=== PATIENT | female | born 1935 | race Caucasian/White ===

== ENCOUNTER → 2016-12-23 | Outpatient (CLI) | payer MEDICARE, OTHER ==
--- NOTE | 2016-12-23 15:38 | RAD ---
Left wrist, 3 views, 12/23/2016: History: Wrist pain There is deformity of the distal radius due to an old healed fracture. No acute fracture or dislocation is identified. There is mild degenerative change at the radiocarpal articulation and at the first CMC joint. IMPRESSION: 1. Degenerative change. 2. Old healed distal radial fracture. 3. No acute bony abnormality is detected.
--- NOTE | 2016-12-23 15:39 | RAD ---
Indication pain in the knee. Difficulty walking. AP oblique and sunrise and lateral views of the right knee were obtained. There is mild medial and lateral joint space compartment narrowing. Bony mineralization appears normal. An acute finding is not seen. There is some mild patellofemoral narrowing. IMPRESSION: Moderate degenerative changes involving the knee
--- NOTE | 2016-12-23 15:41 | RAD ---
Lumbar spine, 3 views, 12/23/2016: History: Back pain The lumbar vertebral heights are well-maintained. There is moderate marginal spurring throughout the lumbar spine. There is moderate disc space narrowing at L5-S1. There are moderate degenerative changes involving the facet joints, particularly in the lower lumbar spine. No acute fracture or dislocation is identified. Aortic calcific plaquing is present. IMPRESSION: 1. Moderate multilevel degenerative change. 2. No acute bony abnormality is detected.
--- NOTE | 2016-12-23 15:41 | RAD ---
Right ankle, 3 views, 12/23/2016: History: Ankle pain No fracture or dislocation is identified. The ankle joint space is well-preserved. There is mild diffuse soft tissue swelling about the ankle. IMPRESSION: No acute bony abnormality is detected.
== END | disposition home or self-care (01) ==
LOC: DXRAD 14:12
PROVIDERS: ATTEND Orthopaedic Surgery
DX: M17.11 Unilateral primary osteoarthritis, right knee (principal); M19.031 Primary osteoarthritis, right wrist; M47.896 Other spondylosis, lumbar region; R26.2 Difficulty in walking, not elsewhere classified
CPT/HCPCS: 72100; 73110; 73564; 73610

== ENCOUNTER 2021-09-27 12:57 | Inpatient (IN) | payer MEDICARE, OTHER ==
[~2021-09-27] VITALS: Ht 152.4 cm; Wt 79.5 kg
[2021-09-27] MEDS ORDERED: ONDANSETRON PF 4 MG/2 ML VIAL. IVP ONE (13:15)
--- NOTE | 2021-09-27 13:45 | PHYS DOC ---
Past History Past Surgical History: Appendectomy, Hysterectomy, Knee Replacement General Adult EDM: Chief Complaint: MECHANICAL FALL HPI: HPI: Patient is a 86-year-old female brought in by EMS from home after a fall. Patient lost her footing and fell into a "wooden island" in her left lateral chest. Denies any loss of consciousness was able to ambulate after assistance with getting up. Has a history of hypertension and diabetes. Denies any blood thinner use. Denies any loss of consciousness Review of Systems: Review of Systems: All other systems within normal limits except for as noted in the HPI Current Medications: Current Meds: Current Medications Medications (Trade) Dose Ordered Sig/Josefina Start Time Stop Time Status Last Admin Dose Admin Fentanyl Citrate (Fentanyl 2ml Vial) 50 mcg 1X ONCE 09/27/21 13:15 09/27/21 13:16 UNV Ondansetron HCl (Zofran) 4 mg 1X ONCE 09/27/21 13:15 09/27/21 13:16 UNV Physical Exam: PE: Constitutional: Well developed, well nourished, no acute distress, non-toxic a ppearance. [] HENT: Normocephalic, atraumatic, bilateral external ears normal, nose normal. [] Eyes: PERRLA, conjunctiva normal, no discharge. [] Neck: No rigidity, supple, no stridor. No C-spine tenderness, no step-off or deformity [] Cardiovascular: Regular rate and rhythm, brisk cap refill [] Lungs & Thorax: Non labored symmetric respirations, no tachypnea or respiratory distress. Breath sounds equal. Severe left lateral rib pain [] Abdomen: Soft, nondistended, tender palpation, no tenderness of the hips. Skin: Warm, dry, no erythema, no rash. [] Back: Unremarkable Extremities: No deformities, range of motion grossly intact, no lower extremity edema [] Neurologic: Alert and oriented X 3, no focal deficits noted. [] Psychologic: Affect normal, judgement normal, mood normal. [] Current Patient Data: Vital Signs: Vital Signs Date Time Temp Pulse Resp B/P (MAP) Pulse Ox O2 Delivery O2 Flow Rate FiO2 09/27/21 13:05 71 18 158/75 (102) 100 Room Air EKG: EKG: Sinus rhythm, heart rate 68 bpm, left axis deviation, left anterior fascicular block Radiology/Procedures: Radiology/Procedures: [address] [address] IMAGING REPORT Signed PATIENT: CHANDRIKA GONZALEZ: [id number] : 1935 LOCATION: ER AGE: 86 SEX: F EXAM STATUS: REG ER ORD. PHYSICIAN: COREY DURAN MD REASON: fall PROCEDURE: CT HEAD AND CERVICAL SPINE WO STUDY: CT head and cervical spine without contrast INDICATION: Fall. COMPARISON: MRI of the cervical spine 01/04/2015 TECHNIQUE: Axial CT imaging through the head and cervical spine without the use of intravenous contrast. Sagittal and coronal reformats were obtained. One or more of the following individualized dose reduction techniques were utilized for this examination: 1. Automated exposure control 2. Adjustment of the mA and/or kV according to patient size 3. Use of iterative reconstruction technique. FINDINGS: CT head: No acute intracranial hemorrhage. Magana-white matter differentiation is maintained. No localized mass effect, midline shift or hydrocephalus. Not unexpected parenchymal volume loss. White matter findings most typical of chronic microvascular ischemic change. Some low-attenuation foci involving the deep magana nuclei typical installer helper infarcts which are age indeterminant but most likely chronic given the indication for imaging. Intracranial calcific atherosclerosis. No large scalp hematoma. Intact calvarium. CT cervical spine: No acute fracture or traumatic malalignment. Severe multifactorial degenerative changes of the cervical spine with central canal stenosis favored greatest at C5-C6 and at least moderate in severity. Multilevel osseous neural foraminal stenosis collectively more pronounced on the right such as at C3-C4 through C5- C6. Multifocal calcific atherosclerosis. Unremarkable thyroid. No paraspinous hematoma. No apical pneumothorax. Nonspecific heterogeneity of the upper lungs. IMPRESSION: CT head: 1. No acute intracranial abnormality by CT. 2. Chronic/senescent observations detailed above. CT cervical spine: 1. No acute fracture or traumatic malalignment noting osteopenia. 2. Severe multifactorial cervical/upper thoracic spondylosis with central canal stenosis favored greatest at C5-C6 and at least moderate in severity. Multilevel right more so than left osseous neural foraminal stenosis. Electronically signed by: MACHELLE BARBOSA MD (09/27/2021 3:27 PM) [facility] DICTATED AND SIGNED BY: MACHELLE BARBOSA MD DATE: 09/27/21 1521 CC: COREY DURAN MD; YASMIN DANGELO MD ~ [][address] [address] IMAGING REPORT Signed PATIENT: CHANDRIKA GONZALEZ LACCOUNT: [id number] : 1935 LOCATION: ER AGE: 86 SEX: F EXAM STATUS: REG ER ORD. PHYSICIAN: COREY DURAN MD REASON: fall PROCEDURE: CT HEAD AND CERVICAL SPINE WO STUDY: CT head and cervical spine without contrast INDICATION: Fall. COMPARISON: MRI of the cervical spine 01/04/2015 TECHNIQUE: Axial CT imaging through the head and cervical spine without the use of intravenous contrast. Sagittal and coronal reformats were obtained. One or more of the following individualized dose reduction techniques were utilized for this examination: 1. Automated exposure control 2. Adjustment of the mA and/or kV according to patient size 3. Use of iterative reconstruction technique. FINDINGS: CT head: No acute intracranial hemorrhage. Magana-white matter differentiation is maintained. No localized mass effect, midline shift or hydrocephalus. Not unexpected parenchymal volume loss. White matter findings most typical of chronic microvascular ischemic change. Some low-attenuation foci involving the deep magana nuclei typical installer helper infarcts which are age indeterminant but most likely chronic given the indication for imaging. Intracranial calcific atherosclerosis. No large scalp hematoma. Intact calvarium. CT cervical spine: No acute fracture or traumatic malalignment. Severe multifactorial degenerative changes of the cervical spine with central canal stenosis favored greatest at C5-C6 and at least moderate in severity. Multilevel osseous neural foraminal stenosis collectively more pronounced on the right such as at C3-C4 through C5- C6. Multifocal calcific atherosclerosis. Unremarkable thyroid. No paraspinous hematoma. No apical pneumothorax. Nonspecific heterogeneity of the upper lungs. IMPRESSION: CT head: 1. No acute intracranial abnormality by CT. 2. Chronic/senescent observations detailed above. CT cervical spine: 1. No acute fracture or traumatic malalignment noting osteopenia. 2. Severe multifactorial cervical/upper thoracic spondylosis with central canal stenosis favored greatest at C5-C6 and at least moderate in severity. Multilevel right more so than left osseous neural foraminal stenosis. Electronically signed by: MACHELLE BARBOSA MD (09/27/2021 3:27 PM) [facility] DICTATED AND SIGNED BY: MACHELLE BARBOSA MD DATE: 09/27/21 1521 CC: COREY DURAN MD; YASMIN DANGELO MD ~ Heart Score: C/O Chest Pain: N/A Risk Factors: Risk Factors: DM, Current or recent (<one month) smoker, HTN, HLP, family history of CAD, obesity. Risk Scores: Score 0 - 3: 2.5% MACE over next 6 weeks - Discharge Home Score 4 - 6: 20.3% MACE over next 6 weeks - Admit for Clinical Observation Score 7 - 10: 72.7% MACE over next 6 weeks - Early Invasive Strategies Course & Med Decision Making: Course & Med Decision Making Pertinent Labs and Imaging studies reviewed. (See chart for details) Consult placed to Dr. Mast for trauma admission, he thinks that the patient be fine staying at [facility] for seizures at home and contusion asleep in the f actors. Discussed with Dr. Olmedo who will accept patient for pulmonary toilet at [place] [] Dragon Disclaimer: Carrie Disclaimer: This electronic medical record was generated, in whole or in part, using a voice recognition dictation system. Departure Departure: Impression: Primary Impression: Fall Additional Impression: Closed traumatic nondisplaced fracture of multiple ribs of left side Disposition: ADMITTED INPATIENT Admitting Physician: Varun Olmedo Condition: GUARDED Referrals: YASMIN DANGELO MD (PCP) COREY DURAN MD Sep 27, 2021 13:45
[2021-09-27] MEDS ORDERED: ONDANSETRON PF 4 MG/2 ML VIAL. ONE (13:49)
[2021-09-27 14:02] LABS: BASO # 0.1 x10^3/uL (0.0-0.2); BASO % 1 % (0-3); EOS # 0.2 x10^3/uL (0.0-0.7); EOS % 2 % (0-3); HEMATOCRIT 44.3 % (36.0-47.0); LYMPH # 2.2 x10^3/uL (1.0-4.8); LYMPH % 24 % (24-48); MEAN CORPUSCULAR HEMOGLOBIN 32 pg (25-35); MEAN CORPUSCULAR HGB CONC 34 g/dL (31-37); MEAN CORPUSCULAR VOLUME 95 fL (79-100); MONO # 0.7 x10^3/uL (0.0-1.1); MONO % 7 % (0-9); NEUT # 6.1 x10^3uL (1.8-7.7); NEUT % 66 % (31-73); PLATELET COUNT 261 x10^3/uL (140-400); RED BLOOD COUNT 4.68 x10^6/uL (3.50-5.40); RED CELL DISTRIBUTION WIDTH 12.7 % (11.5-14.5); WHITE BLOOD COUNT 9.3 x10^3/uL (4.0-11.0)
[2021-09-27 14:10] LABS: CALCIUM 9.8 mg/dL (8.5-10.1); CREATININE 0.8 mg/dL (0.6-1.0); GFR 68.2
[2021-09-27 14:22] LABS: ALBUMIN 3.4 g/dL (3.4-5.0); TOTAL BILIRUBIN 1.3 mg/dL (0.2-1.0); TOTAL PROTEIN 6.7 g/dL (6.4-8.2)
[2021-09-27] MEDS ORDERED: IOHEXOL 300 MG/ML 75 ML VIAL. ONE (14:29)
--- NOTE | 2021-09-27 14:46 | RAD ---
EXAMINATION: XR CHEST 1V CLINICAL HISTORY: Left rib pain following fall. EXAM DATE/TIME: 09/27/2021 1:50 PM COMPARISON: None FINDINGS: Lines, Tubes, and Devices: None. Cardiomediastinal Silhouette: Normal heart size. Aortic atherosclerotic calcification. Lungs and Pleura: Mild bibasilar subsegmental atelectasis and/or scarring. No definite pleural effusi on. No pneumothorax. Bones and Soft Tissues: No evidence of acute left rib fracture. Remote healed left rib fracture defor mities. Partially visualized left clavicle plate and screw fixation hardware. Degenerative changes in the thoracic spine. IMPRESSION: No evidence of acute left rib fracture. Electronically signed by: Reji Cota DO (09/27/2021 2:44 PM) [id number]
--- NOTE | 2021-09-27 15:30 | RAD ---
STUDY: CT head and cervical spine without contrast INDICATION: Fall. COMPARISON: MRI of the cervical spine 01/04/2015 TECHNIQUE: Axial CT imaging through the head and cervical spine without the use of intravenous contra st. Sagittal and coronal reformats were obtained. One or more of the following individualized dose reduction techniques were utilized for this examinat ion: 1. Automated exposure control 2. Adjustment of the mA and/or kV according to patient size 3. Use of iterative reconstruction technique. FINDINGS: CT head: No acute intracranial hemorrhage. Magana-white matter differentiation is maintained. No localized mass effect, midline shift or hydrocephalus. Not unexpected parenchymal volume loss. White matter findings most typical of chronic microvascular i schemic change. Some low-attenuation foci involving the deep magana nuclei typical catalyst operator gasoline infarcts which are age indeterminant but most likely chronic given the indication for imaging. Intracranial ca lcific atherosclerosis. No large scalp hematoma. Intact calvarium. CT cervical spine: No acute fracture or traumatic malalignment. Severe multifactorial degenerative changes of the cervic al spine with central canal stenosis favored greatest at C5-C6 and at least moderate in severity. Mul tilevel osseous neural foraminal stenosis collectively more pronounced on the right such as at C3-C4 through C5-C6. Multifocal calcific atherosclerosis. Unremarkable thyroid. No paraspinous hematoma. No apical pneumot horax. Nonspecific heterogeneity of the upper lungs. IMPRESSION: CT head: 1. No acute intracranial abnormality by CT. 2. Chronic/senescent observations detailed above. CT cervical spine: 1. No acute fracture or traumatic malalignment noting osteopenia. 2. Severe multifactorial cervical/upper thoracic spondylosis with central canal stenosis favored gre atest at C5-C6 and at least moderate in severity. Multilevel right more so than left osseous neural f oraminal stenosis. Electronically signed by: MACHELLE BARBOSA MD (09/27/2021 3:27 PM) [facility]
--- NOTE | 2021-09-27 15:41 | RAD ---
Study: CT chest, abdomen and pelvis with contrast INDICATION: Fall. Left-sided chest pain. COMPARISON: None. TECHNIQUE: Helical CT imaging performed of the chest, abdomen and pelvis after the intravenous admini stration of 75 cc Omnipaque 300. Coronal and sagittal reformats were obtained. One or more of the following individualized dose reduction techniques were utilized for this examinat ion: 1. Automated exposure control 2. Adjustment of the mA and/or kV according to patient size 3. Use of iterative reconstruction technique. FINDINGS: CT Chest: No acute major vascular injury throughout the chest or lower neck. Multifocal calcified and noncalcif ied atheromatous plaque to include coronary artery involvement. No aortic aneurysm or dissection. Non dilated main pulmonary artery. No retrosternal hematoma, pneumomediastinum or pericardial effusion. Mediastinal and hilar lymph node s are within normal limits. No pneumothorax or pleural effusion. Mild bibasilar atelectasis. Favor nodular atelectasis at the med ial aspect of the left lower lobe on image 79 series 4. No suspicious solid pulmonary nodule. Patent central airways. Unremarkable thyroid and axillary lymph nodes. No large body wall hematoma. Acute fractures of the left third, fourth, fifth, sixth and seventh ribs anterolateral without signif icant displacement. Several chronic rib deformities on the left also noted. No displaced rib fracture seen on the right. Intact shoulder girdles. No acute fracture identified throughout the thoracic spi ne. Scattered degenerative changes and diffuse idiopathic skeletal hyperostosis. Intact sternum. CT Abdomen/Pelvis: No acute abnormality of the liver, spleen or kidneys. Hepatic steatosis. Layering gallstones without cholecystitis. Nondilated biliary tree. Unremarkable pancreas and adrenal glands. Numerous renal cyst ic foci the larger of which appear simple. Smaller low-attenuation foci are difficult to fully charac terize. Areas of renal cortical thinning on the left more so than right. Punctate nonobstructing intr arenal stone at the lower pole on the right. No hydronephrosis. Unremarkable bladder. Absent uterus. No adnexal mass. A few diverticuli without diverticulitis. Nonvisualized appendix. Within normal limits course and darline iber of the small bowel. Unremarkable stomach. Multifocal calcified and noncalcified atheromatous plaque. Particularly dense calcific plaque at the left renal artery origin. No acute major vascular abnormality. Adenopathy. No free fluid or pneumoper itoneum. No large body wall hematoma. Relatively symmetric muscular with scattered fatty infiltration. No acut e fracture of the lumbar spine. No acute fracture seen throughout the pelvis to include the hips. Mul tifactorial degenerative changes. Grade 1 anterolisthesis of L4 on L5. Central canal stenosis favored greatest at L3-L4 and L4-L5. Osseous neural foraminal stenosis greatest at L5-S1. IMPRESSION: CT Chest: 1. Acute left-sided rib fractures without significant displacement with involvement of at least the third through seventh ribs. No lung parenchymal contusion, pneumothorax or pleural effusion. 2. No additional sequela of acute trauma seen throughout the chest. Intact major vasculature. 3. Multifocal calcified and noncalcified atheromatous plaque with coronary artery involvement. CT Abdomen/Pelvis: 1. No sequela of acute trauma seen below the diaphragm. 2. Hepatic steatosis. 3. Multiple renal cysts the larger of which appear simple with the smaller foci incompletely charact erized. 4. Several additional chronic findings outlined in the body of the report. Electronically signed by: MACHELLE BARBOSA MD (09/27/2021 3:39 PM) [facility]
[2021-09-27] MEDS ORDERED: HYDROmorphone PF 1 MG/ML DISP.SYRIN IVP ONE (16:15)
[2021-09-27 16:32] LABS: BACTERIA,URINE MOD /HPF (0-FEW); CLARITY,URINE CLEAR; COLOR,URINE YELLOW; GLUCOSE,URINE NEG (NEG); NITRITE,URINE NEG (NEG); RBC,URINE OCC /HPF (0-2); SQUAMOUS EPITHELIAL CELL,UR MOD /LPF; UROBILINOGEN,URINE 0.2 mg/dL (0.2 mg/dL)
[2021-09-27] MEDS ORDERED: HYDROmorphone PF 1 MG/ML DISP.SYRIN IV PRN (16:45)
[2021-09-27] MEDS ORDERED: ONDANSETRON PF 4 MG/2 ML VIAL. IVP PRN (16:45)
[2021-09-27] MEDS ORDERED: POLYETHYLENE GLYCOL 3350 17 GM PACKET. PO PRN (17:15)
[2021-09-27] MEDS ORDERED: PANT40TA6 PO (18:03)
[2021-09-27] MEDS ORDERED: HYDR25TA10 PO (18:03)
[2021-09-27] MEDS ORDERED: INSU100I17 SQ (18:03)
[2021-09-27] MEDS ORDERED: TRAZ-120 PO (18:03)
[2021-09-27 18:11] VITALS: BP 156/88
[2021-09-27] MEDS ORDERED: DEXTROSE 50% 25 GM / 50ML DISP.SYRIN. IV PRN (18:15)
[2021-09-27] MEDS: oxyCODONE IR 5 MG TABLET PO PRN ×2 (19:19→23:20)
[2021-09-27 23:17] VITALS: BP 155/81
--- NOTE | 2021-09-28 00:37 | EKG ---
[address] [address] Test Date: 2021-09-27 Test Time: 13:30:16 Pat Name: CHANDRIKA GONZALEZ Department: Room: 105 A Gender: F Technical Trainer: RISHABH : 1935 Requested By: COREY DURAN Order Number: [id number] Reading MD: Sergio Castellanos Measurements Intervals North Rate: 68 P: 90 NM: 154 QRS: -64 QRSD: 136 T: -11 QT: 460 QTc: 495 Interpretive Statements SINUS RHYTHM ABNORMAL LEFT AXIS DEVIATION LEFT ANTERIOR FASCICULAR BLOCK RIGHT BUNDLE BRANCH BLOCK BIFASCICULAR BLOCK ABNORMAL ECG RI6.02 No previous ECG available for comparison Electronically Signed On 10-05-2021 14:21:23 CDT by Sergio Castellanos
[2021-09-28] MEDS: oxyCODONE IR 5 MG TABLET PO PRN ×2 (04:00→07:59)
[2021-09-28 05:56] VITALS: BP 160/83
[2021-09-28] MEDS: DOCUSATE SODIUM 100 MG CAPSULE PO SCH (07:58)
[2021-09-28] MEDS: PANTOPRAZOLE 40 MG TABLET. PO SCH (07:59)
[2021-09-28] MEDS: hydroCHLOROthiazide 25 MG TABLET. PO SCH (07:59)
[2021-09-28] MEDS: MORPHINE SULFATE 4 MG/ML DISP.SYRIN. IV PRN ×3 (08:53→17:49)
[2021-09-28 10:42] VITALS: BP 146/72
[2021-09-28] MEDS: INSULIN LISPRO 300 UNITS/3 ML VIAL. SQ SCH ×3 (10:53→17:40)
[2021-09-28 15:09] VITALS: BP 115/58
[2021-09-28] MEDS: LIDOCAINE (700MG/PATCH) PATCH. TD SCH (15:54)
--- NOTE | 2021-09-28 16:27 | HP ---
DATE OF SERVICE: 09/28/2021 ADMIT DATE: 09/27/2021 HISTORY OF PRESENT ILLNESS: The patient is an 86-year-old female patient who was brought to the Emergency Room by EMS from home after a fall. She apparently lost her footing and fell into a wooden island in her left lateral chest. Denied any loss of consciousness, was able to ambulate after assistance to get up. She is known to have hypertension and diabetes, but denied any blood thinners. Denied any loss of consciousness or hitting her head. She was extensively investigated in the Emergency Room, has had an EKG, imaging studies and lab work. Her EKG showed that she was in sinus rhythm with a heart rate of 68 beats per minute, left axis deviation, left anterior fascicular block. Her CT scan of the head and cervical spine were unremarkable with no acute intracranial abnormality by CT scan, chronic senescent changes. There is no acute fracture or traumatic malalignment noted, but noting osteopenia. She has severe multilevel cervical and upper thoracic spondylosis with central canal stenosis favored greatest at C5-C6 and at least moderate in severity, multilevel, right more than left osseous neural foraminal stenosis. She did have also a CT scan of the chest, abdomen and pelvis. The CT scan of the chest showed acute left sided rib fractures without significant displacement with involvement of at least 3rd through 7th ribs. No lung parenchymal contusion, pneumothorax, or pleural effusion. No additional sequelae of acute trauma seen throughout the chest, intact major vasculature. She has also multifocal calcified and noncalcified atheromatous plaques with the coronary artery involvement. CT scan of the abdomen and pelvis showed no sequelae of acute trauma seen below the diaphragm. She has hepatic steatosis, multiple renal cysts, the larger of which appears simple with the smallest foci incompletely characterized several additional chronic findings. The patient was admitted for pain management, DVT prophylaxis and to start the process of physical and occupational therapy. PAST MEDICAL HISTORY: Significant for hypertension, hyperlipidemia. PAST SURGICAL HISTORY: Significant for bilateral cataract extraction, appendectomy, hysterectomy, bilateral total knee arthroplasty. ALLERGIES: SHE IS ALLERGIC TO SULFA DRUGS. MEDICATIONS: She is currently on the following medications: She is on hydrochlorothiazide 25 mg once a day, Protonix 40 mg once a day. She is also on NovoLog 10 units before meals. FAMILY HISTORY: Noncontributory. SOCIAL HISTORY: She is . Her son lives with her. Children are grown up. She does not smoke, drink alcohol or recreational drugs. She does not use any assistive devices at home, but she uses a cane when she moves outside. She denied any dizziness, lightheadedness. Denied any palpitation. Denied any tripping or slipping. PHYSICAL EXAMINATION: GENERAL: On arrival to the Emergency Room, she looked well and was clearly in no apparent respiratory distress. No pallor, jaundice, cyanosis. No lymphadenopathy, no thyromegaly, no jugular venous distention. No limb edema. VITAL SIGNS: Her heart rate on arrival was 71, blood pressure is 158/75, temperature was 97.8, respiratory rate was 18 and oxygen saturation was 100%. HEAD, EYES, EARS, NOSE, AND THROAT: Normocephalic, atraumatic. NECK: Supple. HEART: Showed normal first and second heart sounds. No gallop, rub or murmur. CHEST: Clear to auscultation, no crepitation or rhonchi. ABDOMEN: Distended, soft, nontender. NEUROLOGIC: She was awake, alert, responding appropriately. Cranial nerves intact. She moves extremities without difficulty. LABORATORY WORK: Showed a white cell count 9300, hemoglobin 15, hematocrit 44, MCV 95 and platelet count 261,000. Her chemistry showed a serum sodium 138, potassium 4, chloride 100, bicarbonate 29, anion gap of 9, BUN 17, creatinine 0.8. Estimated GFR was 68 mL per minute. Her glucose was 139, calcium was 9.8. Total bilirubin 1.3. AST, ALT, alkaline phosphatase were normal. Her troponin I high sensitivity was 17. Beta natriuretic peptide was 429. Total protein 6.7, albumin 3.4, serum lipase was 102. Her urinalysis was essentially unremarkable and her coronavirus by rapid antigen testing was negative. A CT scan of the head and cervical spine showed the patient has no intracranial hemorrhage. The kulkarni-white matter differentiation is maintained. No localized mass effect, midline shift or hydrocephalus. Parenchymal volume loss with white matter finding, most typical of chronic microvascular ischemic changes, some low attenuation foci involving the deep kulkarni nuclei, typical house calls nurse infarct, which are age indeterminate, but most likely chronic given the indication for imaging intracranial calcific atherosclerosis. No large scalp hematoma and intact calvarium and there is no acute fracture or traumatic malalignment of the cervical spine, several multifactorial degenerative changes of the cervical spine with central canal stenosis favored greatest at C5-C6 and at least moderate in severity. She has multilevel osseous neural foraminal stenosis collectively more pronounced on the right, such as at C3-C4 through C5-C6. She has multifocal calcific atherosclerosis. Unremarkable thyroid no paraspinous hematoma. No apical pneumothorax. No specific ____ the upper lung. The CT scan of the chest, abdomen and pelvis showed no acute major vascular injury throughout the chest and lower neck. Multifocal calcified and noncalcified atheromatous plaque to include coronary artery involvement. No aortic aneurysm or dissection. Nondilated main pulmonary artery. No retrosternal hematoma, pneumomediastinum or pericardial effusion. Mediastinal and hilar lymph nodes are within normal limits. No pneumothorax or pleural effusion. Mild bibasilar atelectasis, , unremarkable thyroid and axillary lymph nodes, no large body wall hematoma. The patient has acute fracture of the left third, fourth, fifth, sixth and seventh rib anterolaterally without significant displacement. The patient has several chronic rib deformities on the left also noted. No displaced fracture seen on the right, intact shoulder girdle, no acute fracture identified throughout the thoracic spine. CT scan of the abdomen and pelvis showed no sequelae of acute trauma seen below the diaphragm, she has hepatic steatosis. ASSESSMENT AND PLAN: The patient was admitted basically for pain control, DVT prophylaxis and start the process of physical and occupational therapy. APOORVA/SREE/PURA DR: Ricarda TID: [id number]
[2021-09-28 19:48] VITALS: BP 107/68
[2021-09-28] MEDS ORDERED: INSULIN GLARGINE SYRINGE. SQ SCH (21:00)
[2021-09-28] MEDS: oxyCODONE ER 10 MG TAB.ER.12H PO SCH (22:15)
[2021-09-28 23:04] VITALS: BP 152/70
[2021-09-29] MEDS: HYDROmorphone PF 1 MG/ML DISP.SYRIN IVP PRN ×2 (03:42→16:19)
[2021-09-29 06:02] VITALS: BP 136/78
[2021-09-29] MEDS: PANTOPRAZOLE 40 MG TABLET. PO SCH (08:45)
[2021-09-29] MEDS: DOCUSATE SODIUM 100 MG CAPSULE PO SCH (08:46)
[2021-09-29] MEDS: oxyCODONE ER 10 MG TAB.ER.12H PO SCH ×2 (08:46→20:22)
[2021-09-29] MEDS: hydroCHLOROthiazide 25 MG TABLET. PO SCH (08:46)
[2021-09-29] MEDS: IV NORMAL SALINE 1,000ML 1,000 ML IV SCH ×2 (08:47→18:44)
[2021-09-29] MEDS: INSULIN LISPRO 300 UNITS/3 ML VIAL. SQ SCH ×3 (08:50→17:26)
[2021-09-29] MEDS: LIDOCAINE (700MG/PATCH) PATCH. TD SCH (08:51)
[2021-09-29 10:51] VITALS: BP 133/76
[2021-09-29] MEDS ORDERED: INSULIN GLARGINE SYRINGE. SQ SCH (11:15)
[2021-09-29 12:26] LABS: HEMATOCRIT 41.8 % (36.0-47.0); HEMOGLOBIN 14.2 g/dL (12.0-15.5); RED BLOOD COUNT 4.41 x10^6/uL (3.50-5.40); RED CELL DISTRIBUTION WIDTH 12.8 % (11.5-14.5); WHITE BLOOD COUNT 11.2 x10^3/uL (4.0-11.0)
[2021-09-29 12:40] LABS: ALBUMIN/GLOBULIN RATIO 0.8 (1.0-1.7); CALCIUM 8.9 mg/dL (8.5-10.1); CREATININE 0.9 mg/dL (0.6-1.0); GFR 59.5; TOTAL BILIRUBIN 1.6 mg/dL (0.2-1.0); TOTAL PROTEIN 6.6 g/dL (6.4-8.2)
[2021-09-29] MEDS ORDERED: POTASSIUM CHLORIDE 20 MEQ TABLET.ER. PO ONE (13:00)
[2021-09-29] MEDS: IBUPROFEN 600 MG TABLET. PO PRN (13:55)
[2021-09-29 15:02] VITALS: BP 132/66
[2021-09-29] MEDS: POTASSIUM CHLORIDE 20 MEQ TABLET.ER. PO SCH ×2 (15:19→20:22)
--- NOTE | 2021-09-29 16:12 | RAD ---
AP chest. HISTORY: Multiple rib fractures, short of breath AP view of the chest was compared with a recent study. There are multiple rib fractures. Patient's ta saji a poor inspiration. There is mild increased hazy atelectasis or infiltrate or edema in the lung b ases. There is no pneumothorax. IMPRESSION: 1. Poor inspiration. 2. Increased basilar atelectasis or infiltrates or edema. Electronically signed by: Obi Alonso MD (09/29/2021 4:10 PM) [id number]
[2021-09-29 19:00] VITALS: BP 122/71
[2021-09-29] MEDS: INSULIN GLARGINE SYRINGE. SQ SCH (20:24)
[2021-09-29 23:00] VITALS: BP 145/73
--- NOTE | 2021-09-30 00:23 | PN ---
DATE: 09/29/2021 SUBJECTIVE: The patient is resting, slightly propped up in bed, clearly in severe pain with every movement. She did work with physical therapy and sat in the chair for a while. PHYSICAL EXAMINATION: GENERAL: When I examined her, she looked well and was clearly in no apparent respiratory distress. No pallor, jaundice, cyanosis or thyromegaly. No jugular venous distention. No lower limb edema. VITAL SIGNS: Her heart rate was 89, blood pressure was 133/76, temperature was 98.2, respiratory rate was 18 and oxygen saturation was 92%. In fact, she is 96% on room air. HEAD, EYES, EARS, NOSE, AND THROAT: Normocephalic, atraumatic. NECK: Supple. HEART: Normal first and second heart sounds. No gallop, rub or murmur. CHEST: Showed central trachea, equal bilateral chest expansion, air entry, vesicular breath sounds. No crepitation or rhonchi. ABDOMEN: Distended, soft, nontender. NEUROLOGIC: She is grossly intact. Her intake and output are incompletely recorded. LABORATORY DATA: Her lab work this morning still pending at the time of this dictation. Her blood sugar is suboptimally controlled. Her coronavirus by PCR was not detectable. ASSESSMENT: 1. Fall with multiple left-sided rib fractures. 2. Hypertension. 3. Hyperlipidemia. PLAN: My plan is to continue with pain management in the form of Lidoderm patches, OxyContin as well as hydromorphone. I will increase her Lantus to 20 units at bedtime. Continue obviously with Colace and MiraLax to prevent opioid-induced constipation. KARLA DR: Ricarda TID: [id number]
[2021-09-30] MEDS: IV NORMAL SALINE 1,000ML 1,000 ML IV SCH ×2 (04:30→14:28)
[2021-09-30 05:00] VITALS: BP 159/81
[2021-09-30 07:41] LABS: BASO # 0.1 x10^3/uL (0.0-0.2); BASO % 1 % (0-3); EOS # 0.4 x10^3/uL (0.0-0.7); EOS % 5 % (0-3); HEMATOCRIT 40.9 % (36.0-47.0); LYMPH # 2.4 x10^3/uL (1.0-4.8); LYMPH % 29 % (24-48); MEAN CORPUSCULAR HEMOGLOBIN 33 pg (25-35); MEAN CORPUSCULAR HGB CONC 34 g/dL (31-37); MEAN CORPUSCULAR VOLUME 96 fL (79-100); MONO # 0.7 x10^3/uL (0.0-1.1); MONO % 9 % (0-9); NEUT # 4.7 x10^3uL (1.8-7.7); NEUT % 57 % (31-73); PLATELET COUNT 207 x10^3/uL (140-400); RED BLOOD COUNT 4.28 x10^6/uL (3.50-5.40); RED CELL DISTRIBUTION WIDTH 13.2 % (11.5-14.5); WHITE BLOOD COUNT 8.2 x10^3/uL (4.0-11.0)
[2021-09-30 08:01] LABS: ALBUMIN 2.6 g/dL (3.4-5.0); ALBUMIN/GLOBULIN RATIO 0.8 (1.0-1.7); CALCIUM 8.4 mg/dL (8.5-10.1); CREATININE 0.8 mg/dL (0.6-1.0); GFR 68.2; TOTAL BILIRUBIN 1.5 mg/dL (0.2-1.0)
[2021-09-30] MEDS: hydroCHLOROthiazide 25 MG TABLET. PO SCH (08:16)
[2021-09-30] MEDS: POTASSIUM CHLORIDE 20 MEQ TABLET.ER. PO SCH ×3 (08:16→21:05)
[2021-09-30] MEDS: IBUPROFEN 600 MG TABLET. PO PRN ×2 (08:17→23:08)
[2021-09-30] MEDS: PANTOPRAZOLE 40 MG TABLET. PO SCH (08:17)
[2021-09-30] MEDS: oxyCODONE ER 10 MG TAB.ER.12H PO SCH ×2 (08:17→21:06)
[2021-09-30] MEDS: DOCUSATE SODIUM 100 MG CAPSULE PO SCH (08:17)
[2021-09-30] MEDS: INSULIN LISPRO 300 UNITS/3 ML VIAL. SQ SCH ×3 (08:18→17:57)
[2021-09-30] MEDS: LIDOCAINE (700MG/PATCH) PATCH. TD SCH (09:00)
[2021-09-30 11:08] VITALS: BP 137/63
[2021-09-30] MEDS: POLYETHYLENE GLYCOL 3350 17 GM PACKET. PO SCH (11:28)
[2021-09-30 15:00] VITALS: BP 123/72
[2021-09-30 19:30] VITALS: BP 130/59
[2021-09-30] MEDS: INSULIN GLARGINE SYRINGE. SQ SCH (21:12)
--- NOTE | 2021-09-30 22:22 | PN ---
DATE: 09/30/2021 SUBJECTIVE: The patient continued to be resting, slightly propped up in bed, complaining of severe left sided chest pain; however, she denied any cough or shortness of breath. She is already on oxycodone. She is also on hydromorphone as well as Lidoderm patches and ibuprofen. PHYSICAL EXAMINATION: GENERAL: When I examined her, she looked well and was clearly in no apparent respiratory distress. No pallor, jaundice, cyanosis or thyromegaly. No jugular venous distention. No lower limb edema. VITAL SIGNS: His heart rate was 80, blood pressure is 159/81, temperature was 98.4, respiratory rate was 16 and oxygen saturation was 96% on room air. HEAD, EYES, EARS, NOSE, AND THROAT: Normocephalic, atraumatic. NECK: Supple. HEART: Showed normal first and second heart sounds. No gallop, rub or murmur. CHEST: Shows central trachea, equal bilateral expansion, air entry, vesicular breath sounds with bilateral basal crepitation posteriorly. I could not appreciate any rhonchi. ABDOMEN: Distended, soft, nontender. NEUROLOGIC: She was grossly intact. Her intake and output were incompletely recorded. LABORATORY DATA: As of this morning, her white cell count was 8.2, hemoglobin 14, hematocrit 41, MCV 96 and platelet count of 207,000 with normal manual differential. Her chemistry showed her serum sodium is up to 141, potassium 4, chloride 107, bicarbonate 26, anion gap of 8, BUN 12, creatinine 0.8. Estimated GFR was 68 mL per minute. Her glucose was 205, calcium was 8.4. Total bilirubin 1.5. AST, ALT, alkaline phosphatase were normal. Total protein 6, albumin 2.6. ASSESSMENT: 1. Fall with multiple left sided rib fracture. The patient continues to complain of pain despite being on oxycodone, hydromorphone, ibuprofen and Lidoderm patches. The patient was encouraged to use the incentive spirometry, encouraged to get out of the bed and to move around to avoid atelectasis and infection. 3. Hypertension. 4. Hyperlipidemia. 5. Deep venous thrombosis prophylaxis. She is on SCDs. 6. Hypokalemia, resolved. Her potassium is up to 4 today. PLAN: To continue with pain management. Continue with incentive spirometry. Continue with physical and occupational therapy. She will probably need to be discharged tomorrow or Friday to [facility] for pain management and physical therapy. MACIEL DR: Ricarda TID: [id number]
[2021-10-01] MEDS: IV NORMAL SALINE 1,000ML 1,000 ML IV SCH (02:19)
[2021-10-01] MEDS: HYDROmorphone PF 1 MG/ML DISP.SYRIN IVP PRN (05:46)
[2021-10-01 07:26] VITALS: BP 135/76
[2021-10-01] MEDS: IBUPROFEN 600 MG TABLET. PO PRN (08:18)
[2021-10-01] MEDS: POLYETHYLENE GLYCOL 3350 17 GM PACKET. PO SCH (08:19)
[2021-10-01] MEDS: POTASSIUM CHLORIDE 20 MEQ TABLET.ER. PO SCH ×3 (08:19→21:09)
[2021-10-01] MEDS: hydroCHLOROthiazide 25 MG TABLET. PO SCH (08:19)
[2021-10-01] MEDS: DOCUSATE SODIUM 100 MG CAPSULE PO SCH (08:19)
[2021-10-01] MEDS: oxyCODONE ER 10 MG TAB.ER.12H PO SCH ×2 (08:19→21:09)
[2021-10-01] MEDS: LIDOCAINE (700MG/PATCH) PATCH. TD SCH (08:20)
[2021-10-01] MEDS: PANTOPRAZOLE 40 MG TABLET. PO SCH (08:20)
[2021-10-01] MEDS: INSULIN LISPRO 300 UNITS/3 ML VIAL. SQ SCH ×3 (08:21→17:00)
[2021-10-01 10:08] LABS: BACTERIA,URINE 0 /HPF (0-FEW); CLARITY,URINE CLEAR; COLOR,URINE YELLOW; GLUCOSE,URINE NEG (NEG); NITRITE,URINE NEG (NEG); SQUAMOUS EPITHELIAL CELL,UR MANY /LPF; UROBILINOGEN,URINE 0.2 mg/dL (0.2 mg/dL)
[2021-10-01] MEDS ORDERED: ASPIRIN ENTERIC COATED 81 MG TABLET.DR. PO ONE (10:45)
[2021-10-01] MEDS ORDERED: METOPROLOL TART IMMED RELEASE 25 MG TABLET. PO ONE (10:45)
[2021-10-01 10:47] VITALS: BP 124/74
[2021-10-01] MEDS: oxyCODONE IR 5 MG TABLET PO PRN (14:39)
[2021-10-01 14:40] VITALS: BP 113/74
--- NOTE | 2021-10-01 15:26 | PDOC2 ---
CONSULT DOS: DATE: 10/01/21 TIME: 15:26 Reason for Consult: Cardiac arrhythmia Referring Physician: Dr. Olmedo Source: Chart review Problem List Problems Medical Problems: (1) Closed traumatic nondisplaced fracture of multiple ribs of left side Status: Acute (2) Fall Status: Acute History of Present Illness 86 y/p female presented after she had a mechanical fall resulting in rib fract ures. Tele showed few brief episodes of arrhythmia possibly AT/SVT with aberrancy prompting cardiology consultation. She complained of pain at rib fracture site but denied any orthopnea/PND, palpitations or syncope Past Medical History HTN HLP Past Surgical History Significant for bilateral cataract extraction, appendectomy, hysterectomy, bilateral total knee arthroplasty. Social History She is . Her son lives with her. Children are grown up. She does not smoke, drink alcohol or recreational drugs. She does not use any assistive devices at home, but she uses a cane when she moves outside. She denied any dizziness, lightheadedness. Denied any palpitation. Denied any tripping or slipping. Current Medications Current Medications Ondansetron HCl (Zofran) 4 mg 1X ONCE IVP Last administered on 09/27/21at 13:51; Start 09/27/21 at 13:15; Stop 09/27/21 at 13:49; Status DC Fentanyl Citrate (Fentanyl 2ml Vial) 50 mcg 1X ONCE IVP Last administered on 09/27/21at 13:52; Start 09/27/21 at 13:15; Stop 09/27/21 at 17:24; Status DC Ondansetron HCl (Zofran) 4 mg STK-MED ONCE .ROUTE ; Start 09/27/21 at 13:49; Stop 09/27/21 at 13:50; Status DC Fentanyl Citrate (Fentanyl 2ml Vial) 100 mcg STK-MED ONCE .ROUTE ; Start 09/27/21 at 13:50; Stop 09/27/21 at 13:50; Status DC Iohexol (Omnipaque 300 Mg/ml) 75 ml STK-MED ONCE .ROUTE ; Start 09/27/21 at 14:29; Stop 09/27/21 at 14:29; Status DC Hydromorphone HCl (Dilaudid) 1 mg 1X ONCE IVP Last administered on 09/27/21at 16:14; Start 09/27/21 at 16:15; Stop 09/27/21 at 16:16; Status DC Ondansetron HCl (Zofran) 4 mg PRN Q4HRS PRN IVP NAUSEA/VOMITING; Start 09/27/21 at 16:45; Stop 09/28/21 at 16:44; Status DC Hydromorphone HCl (Dilaudid) 0.5 mg PRN Q2HR PRN IV PAIN; Start 09/27/21 at 16:45; Stop 09/27/21 at 17:24; Status DC Oxycodone HCl (Roxicodone) 5 mg PRN Q4HRS PRN PO PAIN Last administered on 09/28/21at 07:59; Start 09/27/21 at 17:15; Stop 09/28/21 at 15:10; Status DC Polyethylene Glycol (miraLAX) 17 gm PRN DAILY PRN PO CONSTIPATION; Start 09/27/21 at 17:15; Stop 09/30/21 at 10:01; Status DC Docusate Sodium (Colace) 100 mg DAILY PO Last administered on 10/01/21 08:19; Start 09/28/21 at 09:00 Insulin Human Lispro (HumaLOG) 0-9 UNITS TIDWMEALS SQ Last administered on 10/01/21at 12:04; Start 09/28/21 at 08:00 Dextrose (Dextrose 50%-Water Syringe) 12.5 gm PRN Q15MIN PRN IV SEE COMMENTS; Start 09/27/21 at 18:15 Hydrochlorothiazide (Hydrodiuril) 25 mg DAILY PO Last administered on 10/01/21at 08:19; Start 09/28/21 at 09:00 Pantoprazole Sodium (Protonix) 40 mg DAILY PO Last administered on 10/01/21 08:20; Start 09/28/21 at 09:00 Morphine Sulfate (Morphine 4mg Syringe) 4 mg PRN Q4HRS PRN IV PAIN Last administered on 09/28/21at 17:49; Start 09/28/21 at 08:45; Stop 09/28/21 at 18:50; Status DC Lidocaine (Lidoderm) 2 patch DAILY TD Last administered on 10/01/21at 08:20; Start 09/28/21 at 15:00 Insulin Glargine (Lantus Syringe) 10 unit QHS SQ Last administered on 09/28/21at 22:14; Start 09/28/21 at 21:00; Stop 09/29/21 at 11:14; Status DC Oxycodone HCl (OxyCONTIN) 10 mg Q12HR PO Last administered on 10/01/21at 08:19; Start 09/28/21 at 21:00 Hydromorphone HCl (Dilaudid) 1 mg PRN Q3HRS PRN IVP PAIN Last administered on 10/01/21at 05:46; Start 09/28/21 at 18:45 Sodium Chloride 1,000 ml @ 100 mls/hr Q10H IV Last administered on 10/01/21at 02:19; Start 09/29/21 at 08:00; Stop 10/01/21 at 10:40; Status DC Insulin Glargine (Lantus Syringe) 20 unit QHS SQ ; Start 09/29/21 at 11:15; Stop 09/29/21 at 11:21; Status DC Insulin Glargine (Lantus Syringe) 20 unit QHS SQ Last administered on 09/30/21at 21:12; Start 09/29/21 at 21:00 Potassium Chloride (Klor-Con) 40 meq 1X ONCE PO Last administered on 09/29/21at 13:55; Start 09/29/21 at 13:00; Stop 09/29/21 at 13:01; Status DC Potassium Chloride (Klor-Con) 20 meq TID PO Last administered on 10/01/21at 13:42; Start 09/29/21 at 14:00 Ibuprofen (Motrin) 600 mg PRN Q6HRS PRN PO PAIN/INFLAMMATION Last administered on 10/01/21at 08:18; Start 09/29/21 at 13:00 Polyethylene Glycol (miraLAX) 17 gm DAILY PO Last administered on 10/01/21at 08:19; Start 09/30/21 at 10:00 Metoprolol Tartrate (Lopressor) 25 mg BID PO ; Start 10/01/21 at 21:00 Metoprolol Tartrate (Lopressor) 25 mg 1X ONCE PO Last administered on 10/01/21at 12:05; Start 10/01/21 at 10:45; Stop 10/01/21 at 10:46; Status DC Aspirin (Aspirin Enteric Coated) 81 mg DAILYWBKFT PO ; Start 10/02/21 at 08:00 Aspirin (Aspirin Enteric Coated) 81 mg 1X ONCE PO Last administered on 10/01/21at 12:04; Start 10/01/21 at 10:45; Stop 10/01/21 at 10:47; Status DC Oxycodone HCl (Roxicodone) 5 mg PRN Q4HRS PRN PO PAIN Last administered on 10/01/21at 14:39; Start 10/01/21 at 13:45 Active Scripts Active Reported Novolog Flexpen (Insulin Aspart) 100 Unit/1 Ml Insuln.pen 10 Units SQ TID MDD 30 Pantoprazole Sodium 40 Mg Tablet.dr 1 Tab PO DAILY Hydrochlorothiazide 25 Mg Tablet 1 Tab PO DAILY Allergies: Coded Allergies: sulfamethoxazole (Verified Allergy, Mild, 09/27/21) trimethoprim (Verified Allergy, Mild, 09/27/21) Review of System 14 point of systems is negative other than for symptoms mentioned in HPI General: Alert, No acute distress HEENT: Atraumatic Lungs: Clear to auscultation Heart: Regular rate Abdomen: Soft Extremities: No edema Psych/Mental Status: Mood NL VITALS Vital Signs Date Time Temp Pulse Resp B/P (MAP) Pulse Ox O2 Delivery O2 Flow Rate FiO2 10/01/21 15:09 16 96 Room Air 10/01/21 14:40 97.1 70 113/74 (87) Labs Laboratory Tests Test 09/29/21 20:11 09/30/21 06:40 09/30/21 07:40 09/30/21 11:45 Glucose (Fingerstick) 172 mg/dL (70-99) 206 mg/dL (70-99) 261 mg/dL (70-99) White Blood Count 8.2 x10^3/uL (4.0-11.0) Red Blood Count 4.28 x10^6/uL (3.50-5.40) Hemoglobin 14.0 g/dL (12.0-15.5) Hematocrit 40.9 % (36.0-47.0) Mean Corpuscular Volume 96 fL (79-100) Mean Corpuscular Hemoglobin 33 pg (25-35) Mean Corpuscular Hemoglobin Concent 34 g/dL (31-37) Red Cell Distribution Width 13.2 % (11.5-14.5) Platelet Count 207 x10^3/uL (140-400) Neutrophils (%) (Auto) 57 % (31-73) Lymphocytes (%) (Auto) 29 % (24-48) Monocytes (%) (Auto) 9 % (0-9) Eosinophils (%) (Auto) 5 % (0-3) Basophils (%) (Auto) 1 % (0-3) Neutrophils # (Auto) 4.7 x10^3uL (1.8-7.7) Lymphocytes # (Auto) 2.4 x10^3/uL (1.0-4.8) Monocytes # (Auto) 0.7 x10^3/uL (0.0-1.1) Eosinophils # (Auto) 0.4 x10^3/uL (0.0-0.7) Basophils # (Auto) 0.1 x10^3/uL (0.0-0.2) Sodium Level 141 mmol/L (136-145) Potassium Level 4.0 mmol/L (3.5-5.1) Chloride Level 107 mmol/L (98-107) Carbon Dioxide Level 26 mmol/L (21-32) Anion Gap 8 (6-14) Blood Urea Nitrogen 12 mg/dL (7-20) Creatinine 0.8 mg/dL (0.6-1.0) Estimated GFR (Cockcroft-Gault) 68.2 BUN/Creatinine Ratio 15 (6-20) Glucose Level 205 mg/dL (70-99) Calcium Level 8.4 mg/dL (8.5-10.1) Magnesium Level 1.9 mg/dL (1.8-2.4) Total Bilirubin 1.5 mg/dL (0.2-1.0) Aspartate Amino Transf (AST/SGOT) 23 U/L (15-37) Alanine Aminotransferase (ALT/SGPT) 15 U/L (14-59) Alkaline Phosphatase 51 U/L (46-116) Total Protein 6.0 g/dL (6.4-8.2) Albumin 2.6 g/dL (3.4-5.0) Albumin/Globulin Ratio 0.8 (1.0-1.7) Thyroid Stimulating Hormone (TSH) 3.119 uIU/mL (0.358-3.740) Test 09/30/21 16:46 09/30/21 20:31 10/01/21 07:26 10/01/21 09:00 Glucose (Fingerstick) 225 mg/dL (70-99) 250 mg/dL (70-99) 164 mg/dL (70-99) Urine Collection Type Unknown Urine Color Yellow Urine Clarity Clear Urine pH 5.5 Urine Specific [place] 1.020 Urine Protein Neg (NEG-TRACE) Urine Glucose (UA) Neg mg/dL (NEG) Urine Ketones (Stick) Neg mg/dL (NEG) Urine Blood Neg (NEG) Urine Nitrite Neg (NEG) Urine Bilirubin Neg (NEG) Urine Urobilinogen Dipstick 0.2 mg/dL (0.2 mg/dL) Urine Leukocyte Esterase Trace (NEG) Urine RBC 1-2 /HPF (0-2) Urine WBC 5-10 /HPF (0-4) Urine Squamous Epithelial Cells Many /LPF Urine Bacteria 0 /HPF (0-FEW) Test 10/01/21 11:36 Glucose (Fingerstick) 177 mg/dL (70-99) Assessment/Plan 1. Traumatic fall; no precipitating dizziness or LOC 2. Arrhythmia; tele noted with burst of probable atrial tach with aberrant conduction. No clear VT/VF noted. TSH WNL. Start beta blockers. Check 2D echo to assess LV function and rule out structural abnormalities. Plan event monitor as outpatient 3. Hypertension; controlled 4. Hyperlipidemia: statins 5. Diabetes, II: treat per IM Thank you for your consultation DEMARIO MAJOR MD Oct 01, 2021 15:26
[2021-10-01 19:38] VITALS: BP 118/73
[2021-10-01] MEDS: METOPROLOL TART IMMED RELEASE 25 MG TABLET. PO SCH (21:09)
[2021-10-01] MEDS: INSULIN GLARGINE SYRINGE. SQ SCH (21:22)
[2021-10-01 23:00] VITALS: BP 137/71
--- NOTE | 2021-10-02 02:58 | PN ---
DATE: 10/01/2021 SUBJECTIVE: The patient is sitting in the chair, participating with physical and occupational therapy. While walking to the gym, she went into an episode of ventricular tachycardia that lasted for probably at least 3-4 seconds. She had another episode yesterday, it was shorter and I did actually check her electrolytes and her potassium and magnesium are well within normal range. I did speak with Jesika, the nurse practitioner of the Cardiology team and the plan was to start her on metoprolol 25 mg twice a day as well as a baby aspirin and arrangement will be made for her to have an echocardiogram and an event monitor before she could be discharged to [facility]. When I saw her today, she looked well and was clearly in no apparent respiratory distress. She continued to complain of severe pain, but denied any shortness of breath, orthopnea, or paroxysmal nocturnal dyspnea. PHYSICAL EXAMINATION: GENERAL: When I examined her, she looked well and was clearly in no apparent respiratory distress. No pallor, jaundice, cyanosis or thyromegaly. No jugular venous distention. No limb edema. VITAL SIGNS: Her heart rate was 81, blood pressure was 135/76, temperature was 96.6, respiratory rate was 15 and oxygen saturation was 96% on room air. HEAD, EYES, EARS, NOSE, AND THROAT: Normocephalic, atraumatic. NECK: Supple. HEART: Showed normal first and second heart sounds. No gallop, rub or murmur. CHEST: Clear to auscultation, no crepitation or rhonchi. ABDOMEN: Distended, soft, nontender. NEUROLOGIC: She was awake, alert, responding appropriately. Cranial nerves intact. She moves extremities without difficulty. She ambulates with a walker. Her intake was 3100, output was 1150. LABORATORY DATA: As of yesterday, her white cell count was 8.2, hemoglobin 14, hematocrit 41, MCV 96 and platelet count 207,000. Her blood sugar seems to be reasonably controlled. Her chemistry as of yesterday showed a serum sodium 141, potassium 4, chloride 107, bicarbonate 26, anion gap of 8, BUN 12, creatinine 0.8. Estimated GFR was 68 mL per minute. Her glucose was 205, calcium was 8.4. Her serum magnesium was 1.9. Total bilirubin, AST, ALT, alkaline phosphatase were normal. Total protein 5, albumin 2.6. ASSESSMENT: 1. Fall with sustaining multiple left-sided rib fractures. The patient continues to complain of severe pain despite being on oxycodone, hydromorphone, ibuprofen and Lidoderm patches. 2. The patient has so far 2 episodes of nonsustained ventricular tachycardia that might explain why she fell, and therefore, she was started on metoprolol 25 mg twice a day and baby aspirin 81 mg once a day. We will check a TSH and order for an echocardiogram and the patient will be seen by the wooden tank erector and possible event monitor placement. 3. Hypertension. 4. Hyperlipidemia. 5. Deep vein thrombosis prophylaxis for which she is on sequential compression device. 6. Hypokalemia, resolved. Her most recent serum potassium is up to 4 mEq per liter. PLAN: To continue with pain management. Continue with incentive spirometry. Continue with physical and occupational therapy. I did start her on metoprolol 25 mg twice a day, baby aspirin 81 mg once a day, and put an order for an echocardiogram. CHANINNG/KATINA DR: Ricarda TID: [id number]
[2021-10-02] MEDS: oxyCODONE IR 5 MG TABLET PO PRN ×3 (04:27→15:56)
[2021-10-02 05:07] VITALS: BP 138/76
[2021-10-02 06:16] LABS: HEMATOCRIT 39.4 % (36.0-47.0); HEMOGLOBIN 13.4 g/dL (12.0-15.5); RED BLOOD COUNT 4.1 x10^6/uL (3.50-5.40); RED CELL DISTRIBUTION WIDTH 12.9 % (11.5-14.5); WHITE BLOOD COUNT 9.6 x10^3/uL (4.0-11.0)
[2021-10-02 06:27] LABS: CALCIUM 8.5 mg/dL (8.5-10.1); CREATININE 0.9 mg/dL (0.6-1.0); GFR 59.5; POTASSIUM 4.5 mmol/L (3.5-5.1)
[2021-10-02] MEDS ORDERED: ASPIRIN ENTERIC COATED 81 MG TABLET.DR. PO SCH (08:00)
[2021-10-02] MEDS: INSULIN LISPRO 300 UNITS/3 ML VIAL. SQ SCH ×2 (08:19→12:18)
[2021-10-02] MEDS: POLYETHYLENE GLYCOL 3350 17 GM PACKET. PO SCH (08:20)
[2021-10-02] MEDS: DOCUSATE SODIUM 100 MG CAPSULE PO SCH (08:20)
[2021-10-02] MEDS: POTASSIUM CHLORIDE 20 MEQ TABLET.ER. PO SCH (08:20)
[2021-10-02] MEDS: PANTOPRAZOLE 40 MG TABLET. PO SCH (08:21)
[2021-10-02] MEDS: hydroCHLOROthiazide 25 MG TABLET. PO SCH (08:21)
[2021-10-02] MEDS: IBUPROFEN 600 MG TABLET. PO PRN ×2 (08:22→08:52)
[2021-10-02] MEDS: METOPROLOL TART IMMED RELEASE 25 MG TABLET. PO SCH (08:23)
[2021-10-02] MEDS: LIDOCAINE (700MG/PATCH) PATCH. TD SCH (08:27)
[2021-10-02] MEDS: oxyCODONE ER 10 MG TAB.ER.12H PO SCH (08:30)
--- NOTE | 2021-10-02 09:24 | PDOC ---
CARDIO Progress Notes Date & Time Date of Service DATE: 10/02/21 TIME: 09:23 Time of Evaluation 09:23 Subjective Notes Up ambulating with physical therapy. c/o pain in her left side from fall Vitals Vitals Vital Signs Date Time Temp Pulse Resp B/P (MAP) Pulse Ox O2 Delivery O2 Flow Rate FiO2 10/02/21 08:30 22 94 Room Air 10/02/21 08:23 78 138/76 10/02/21 05:07 98.3 10/01/21 19:38 Weight Weight [ ] Input and Output I.O. Intake and Output 10/02/21 07:00 Intake Total 1240 ml Balance 1240 ml Intake Oral 1240 ml # Voids 4 Laboratory Labs Laboratory Tests Test 09/30/21 11:45 09/30/21 16:46 09/30/21 20:31 10/01/21 07:26 Glucose (Fingerstick) 261 mg/dL (70-99) 225 mg/dL (70-99) 250 mg/dL (70-99) 164 mg/dL (70-99) Test 10/01/21 09:00 10/01/21 11:36 10/01/21 16:47 10/02/21 05:39 Urine Collection Type Unknown Urine Color Yellow Urine Clarity Clear Urine pH 5.5 Urine Specific [place] 1.020 Urine Protein Neg (NEG-TRACE) Urine Glucose (UA) Neg mg/dL (NEG) Urine Ketones (Stick) Neg mg/dL (NEG) Urine Blood Neg (NEG) Urine Nitrite Neg (NEG) Urine Bilirubin Neg (NEG) Urine Urobilinogen Dipstick 0.2 mg/dL (0.2 mg/dL) Urine Leukocyte Esterase Trace (NEG) Urine RBC 1-2 /HPF (0-2) Urine WBC 5-10 /HPF (0-4) Urine Squamous Epithelial Cells Many /LPF Urine Bacteria 0 /HPF (0-FEW) Glucose (Fingerstick) 177 mg/dL (70-99) 180 mg/dL (70-99) White Blood Count 9.6 x10^3/uL (4.0-11.0) Red Blood Count 4.10 x10^6/uL (3.50-5.40) Hemoglobin 13.4 g/dL (12.0-15.5) Hematocrit 39.4 % (36.0-47.0) Mean Corpuscular Volume 96 fL (79-100) Mean Corpuscular Hemoglobin 33 pg (25-35) Mean Corpuscular Hemoglobin Concent 34 g/dL (31-37) Red Cell Distribution Width 12.9 % (11.5-14.5) Platelet Count 242 x10^3/uL (140-400) Sodium Level 142 mmol/L (136-145) Potassium Level 4.5 mmol/L (3.5-5.1) Chloride Level 107 mmol/L (98-107) Carbon Dioxide Level 28 mmol/L (21-32) Anion Gap 7 (6-14) Blood Urea Nitrogen 15 mg/dL (7-20) Creatinine 0.9 mg/dL (0.6-1.0) Estimated GFR (Cockcroft-Gault) 59.5 Glucose Level 171 mg/dL (70-99) Calcium Level 8.5 mg/dL (8.5-10.1) Test 10/02/21 07:54 Glucose (Fingerstick) 172 mg/dL (70-99) Microbiology Micro Microbiology 09/27/21 Urine Culture - Final, Complete Physical Exams HEENT: Neck Supple W Full Motion Chest: Symmetric Lungs: Clear to Auscultation Heart: RRR Abdomen: Soft N/T Extremities: No Edema Neurology: alert, oriented, follow commands Assessment Assessment 1. Traumatic fall; no precipitating dizziness or LOC 2. Arrhythmia; tele noted with burst of probable atrial tach with aberrant conduction. No clear VT/VF noted. TSH WNL. BB added. No further arrhythmias note d on tele. 3. Hypertension; controlled 4. Hyperlipidemia 5. Diabetes, II Recommendations Continue metoprolol ASA therapy Echocardiogram this afternoon. Will arranged outpatient event monitor and follow up in our office with Dr. Castellanos. HELEN FELIX APRN Oct 02, 2021 09:24
[2021-10-02 11:28] VITALS: BP 107/65
[2021-10-02] MEDS ORDERED: OXYC10TA46 PO (13:03)
[2021-10-02] MEDS ORDERED: METO25TA4 PO (13:03)
[2021-10-02] MEDS ORDERED: OXYC5TAB4 PO (13:03)
--- NOTE | 2021-10-02 22:10 | DS ---
DATE OF DISCHARGE: 10/02/2021 HOSPITAL COURSE: The patient is an 86-year-old female patient who fell sustaining multiple left sided rib fracture. She was admitted here for pain management and to continue the process of physical and occupational therapy. She has continued to have severe pain but continued to do better slowly. She is walking with a walker, participating with physical and occupational therapy. She is getting out of the bed to chair and a decision was made to discharge her to [facility] to continue the process of rehabilitation and pain management. PHYSICAL EXAMINATION: GENERAL: When I saw her this afternoon, she was resting slightly propped up in bed, in no apparent respiratory distress. VITAL SIGNS: Her heart rate was 66, blood pressure is 107/65, temperature 98.7, respiratory rate was 18 and oxygen saturation was 97% on room air. HEAD, EYES, EARS, NOSE, AND THROAT: Normocephalic, atraumatic. NECK: Supple. HEART: Showed normal first and second heart sounds. No gallop, rub or murmur. CHEST: Shows central trachea, equal bilateral expansion, air entry, vesicular breath sounds. No crepitation or rhonchi. ABDOMEN: Distended, soft, nontender. NEUROLOGIC: She is grossly intact. Her intake was 3500, output was 1600. LABORATORY DATA: As of this morning, her white cell count was 9.6, hemoglobin 13.4, hematocrit 39, MCV 96 and platelet count 242,000. Her chemistry this morning showed a serum sodium of 142, potassium 4.5, chloride 107, bicarbonate 28, anion gap of 7, BUN 15, creatinine 0.9. Estimated GFR was 59 mL per minute. Her glucose 171 and calcium was 8.5. DISCHARGE MEDICATIONS: The patient was discharged to [facility] to continue on aspirin 81 mg once a day, metoprolol tartrate 25 mg twice a day, oxycodone immediate release 5 mg every 4 hours, polyethylene glycol 17 grams daily, Lantus insulin 20 units at bedtime, potassium chloride 20 mEq 3 times a day, ibuprofen 600 mg every 6 hours as needed for pain, OxyContin 10 mg twice a day scheduled, Lidoderm patches 2 patches to the left sided chest on for 12 hours, off for 12 hours, hydrochlorothiazide 25 mg once a day, Colace 100 mg once a day. She is also on insulin sliding scale before meals. FINAL DISCHARGE DIAGNOSES: 1. Fall with resultant multiple left sided rib fracture. The patient continues to complain of severe pain despite being on oxycodone, OxyContin, ibuprofen and Lidoderm patches. 2. She has 2 episodes of nonsustained ventricular tachycardia that has responded to beta blockers indicating that she probably has either supraventricular tachycardia or atrial fibrillation aberration with aberrant conduction. She has had no further episode of this tachycardia since she was started on metoprolol. 3. Hypertension. 4. Hyperlipidemia. 5. Deep vein thrombosis prophylaxis, which she is on sequential compression devices with Lovenox 40 mg subcutaneous once a day. 6. Hypokalemia, resolved. 7. Type 2 diabetes mellitus. 8. Debility and deconditioning.. MACIEL DR: Ricarda TID: [id number]
--- NOTE | 2021-10-04 08:52 | CARD ---
MR#: [id number] Account#: Date of Study: 10/02/2021 Ordering Physician: Princess: Mykel Narayanan EDILSON APPROVED REPORT EXAM: Two-dimensional and M-mode echocardiogram with Doppler and color Doppler. Other Information Quality : AverageHR: 68bpm Rhythm : NSRTechnically limited study due to body habitus and fractured ribs. INDICATION Recurrent ventricular tachycardia RISK FACTORS Left hip fractures 2D DIMENSIONS Left Atrium(2D)3.7 (1.6-4.0cm)IVSd0.8 (0.7-1.1cm) Aortic Root(2D)2.9 (2.0-3.7cm)LVDd3.5 (3.9-5.9cm) PWd0.8 (0.7-1.1cm)LVDs2.5 (2.5-4.0cm) FS (%) 28.0 %SV27.4 ml LVEF(%)55.2 (>50%) Aortic Valve AoV Peak Maynor.104.5cm/sAoV VTI25.1cm AO Peak GR.4.4mmHgLVOT Peak Maynor.100.2cm/s LVOT VTI 23.19cmAO Mean GR.3mmHg Mitral Valve MV E Gqlonfue05.2cm/sMV DECEL [id number] MV A Eiexaqap10.8cm/sE/A Ratio1.2 Pulmonary Valve PV Peak Hibkpqmi00.3cm/sPV Peak Grad.2mmHg Tricuspid Valve TR P. Fxzppdar393ah/sTR Peak Gr.18mmHg LEFT VENTRICLE The left ventricle is normal size. There is normal left ventricular wall thickness. The left ventricu lar systolic function is normal and the ejection fraction is within normal range. EF 55% There is vinod ssly normal LV segmental wall motion. Tissue Doppler imaging reveals mild left ventricular diastolic dysfunction. RIGHT VENTRICLE The right ventricle is normal size. There is normal right ventricular wall thickness. The right ventr icular systolic function is normal. ATRIA The left atrium size is normal. The right atrium size is normal. The interatrial septum is intact wit h no evidence for an atrial septal defect or patent foramen ovale as noted on 2-D or Doppler imaging. AORTIC VALVE Grossly normal aortic valve. Doppler and Color Flow revealed no significant aortic regurgitation. The re is no significant aortic valvular stenosis. There is no aortic valvular vegetation. MITRAL VALVE The mitral valve is normal in structure and function. There is no evidence of mitral valve prolapse. There is no mitral valve stenosis. Doppler and Color Flow revealed no mitral valve regurgitation note d. TRICUSPID VALVE The tricuspid valve is normal in structure and function. Doppler and Color Flow revealed trace tricus pid regurgitation. There is no tricuspid valve prolapse or vegetation. There is no tricuspid valve st enosis. PULMONIC VALVE The pulmonic valve is not well seen. Doppler and Color Flow revealed no pulmonic valvular regurgitati on. There is no pulmonic valvular stenosis. GREAT VESSELS The aortic root is normal in size. The ascending aorta is normal in size. The IVC is normal in size a nd collapses >50% with inspiration. PERICARDIAL EFFUSION There is no pleural effusion. There is no evidence of significant pericardial effusion. Critical Notification Critical Value: No <Conclusion> The left ventricular systolic function is normal and the ejection fraction is within normal range. EF 55% There is grossly normal LV segmental wall motion. Technically difficult study. Signed by : Jax Mart, Electronically Approved : 10/03/2021 07:59:45
== END 2021-10-02 16:10 | DRG 184 ==
LOC: ER 12:57 → 1 SOUTH 16:57
PROVIDERS: ADMIT Internal Medicine; ATTEND Internal Medicine
DX: S22.42XA Multiple fractures of ribs, left side, initial encounter for closed fracture (principal); I47.2 Ventricular tachycardia; E11.9 Type 2 diabetes mellitus without complications; E78.5 Hyperlipidemia, unspecified; E87.6 Hypokalemia; I10 Essential (primary) hypertension; I44.4 Left anterior fascicular block; K76.0 Fatty (change of) liver, not elsewhere classified; M47.814 Spondylosis without myelopathy or radiculopathy, thoracic region; M48.02 Spinal stenosis, cervical region; M85.80 Other specified disorders of bone density and structure, unspecified site; N28.1 Cyst of kidney, acquired; W01.0XXA Fall on same level from slipping, tripping and stumbling without subsequent striking against object, initial encounter; R53.81 Other malaise; Z20.822 Contact with and (suspected) exposure to COVID-19; Z96.653 Presence of artificial knee joint, bilateral; Z79.82 Long term (current) use of aspirin; Z90.49 Acquired absence of other specified parts of digestive tract; Z90.710 Acquired absence of both cervix and uterus; Z98.41 Cataract extraction status, right eye; Z98.42 Cataract extraction status, left eye; Z88.1 Allergy status to other antibiotic agents; Y93.89 Activity, other specified; Y92.89 Other specified places as the place of occurrence of the external cause; Y99.8 Other external cause status; Z88.2 Allergy status to sulfonamides
CPT/HCPCS: 36415; 70450; 71045; 71260; 72125; 74177; 80048; 80053; 81001; 82947; 83690; 83735; 83880; 84443; 84484; 85025; 85027; 87086; 87426; 93005; 93306; 96374; 96375; 97163; J1170; J1815; J2270; J2405; J3010; U0003; 97110; 97116; 97530; 97535; 99285-25; J7030